=== PATIENT | female | born 2000 | race African-American/Black ===

== ENCOUNTER 2019-09-09 10:52 | Emergency (ER) | payer OTHER ==
[~2019-09-09] VITALS: Ht 160 cm; Wt 48.1 kg
[2019-09-09] MEDS ORDERED: IBUPROFEN 600600 M1 PO (14:25)
[2019-09-09 15:02] VITALS: BP 102/63
== END 2019-09-09 15:02 | disposition home or self-care (01) ==
LOC: ER 10:52
DX: N60.01 Solitary cyst of right breast (principal)

== ENCOUNTER 2020-01-30 11:21 | Emergency (ER) | payer OTHER ==
[~2020-01-30] VITALS: Ht 160 cm; Wt 49.9 kg
[~2020-01-30 11:21] MED LIST: IBUPROFEN 600600 M1 PO
[2020-01-30] MEDS ORDERED: BUTALB-APAP-CA1 EACH PO (13:13)
[2020-01-30 13:20] VITALS: BP 110/56
== END 2020-01-30 13:20 | disposition home or self-care (01) ==
LOC: ER 11:21
DX: G43.909 Migraine, unspecified, not intractable, without status migrainosus (principal)

== ENCOUNTER 2020-02-27 03:39 | Emergency (ER) | payer OTHER ==
[~2020-02-27] VITALS: Ht 160 cm; Wt 49.9 kg
[~2020-02-27 03:39] MED LIST changes: +BUTALB-APAP-CA1 EACH PO
[2020-02-27 04:55] VITALS: BP 97/57
== END 2020-02-27 05:03 | disposition home or self-care (01) ==
LOC: ER 03:39
DX: R51.9 Headache, unspecified (principal)

== ENCOUNTER 2021-01-10 23:42 | Emergency (ER) | payer OTHER ==
[~2021-01-10] VITALS: Ht 160 cm; Wt 51.7 kg
[2021-01-11 01:59] VITALS: BP 92/57
[2021-01-14] MEDS ORDERED: AMOXICILLIN 50500 M1 PO (15:36)
== END 2021-01-11 01:59 | disposition home or self-care (01) ==
LOC: ER 23:42
PROVIDERS: Student in an Organized Health Care Education/Training Program
DX: U07.1 COVID-19 (principal); J02.9 Acute pharyngitis, unspecified

== ENCOUNTER 2021-01-15 20:13 | Emergency (ER) | payer OTHER ==
[~2021-01-15] VITALS: Ht 165.1 cm; Wt 72.6 kg
--- NOTE | ~2021-01-15 | EMS ---
[address] [address] EMS Patient Care Report Name: MARKELL YUSUF Room #: DEP REGGIE Palmer#: [id number] Admission: 01/15/21 Attend Phys: Discharge: 01/15/21 Date of : [birth year] Report #: [id number] THIS REPORT FOR: //name// Report Transmitted: 01/16/2021 09:36 EMS Care Summary [place], [place]/[facility] Incident [id number] @ 01/15/2021 19:38 Incident Location [address] [place] [address] Patient MARKELL YUSUF Female, 20 Years 2000 Patient Address [address] [place], [place] [id number] Patient History None Reported, Patient Allergies No known allergies, Patient Medications None Reported, Chief Complaint Nausea & Vomiting Disposition Transported No Lights/[place] Dispatch Reason Sick Person Transported To [facility] Narrative Dispatched to the scene of a 20 year old sick female. Upon arrival, met [facility] on scene and they stated patient had been vomiting for two days. Patient was [address] [address] EMS Patient Care Report Name: MARKELL YUSUF Room #: DEP REGGIE Palmer#: [id number] Admission: 01/15/21 Attend Phys: Discharge: 01/15/21 Date of : [birth year] Report #: [id number] diagnosed with COVID last and has not been feeling well. Patient states she cannot keep any food or liquid down. Patient denied any hematemesis and stated everything she has vomited up has been bile. Patient was assisted into the ambulance and secured to the cot. An ALS assessment was performed and vitals were monitored. A 20 gauge IV was established in the left AC and patient was given 4 mg of IV zofran. Patient rested comfortably while en route to [place]. Upon hospital arrival, patient was taken in on the cot, moved herself to the hospital bed, bed rails were raised, and patient care was transferred to the receiving nurse. Initial Vitals @19:53P: 76,R: 20,BP: 118/72,Pain: 0/10,GCS: 15,SpO2: 99,Revised Trauma: 12, @20:04P: 76,R: 20,BP: 111/73,Pain: 0/10,GCS: 15,Glucose: 84,SpO2: 99,Revised Trauma: 12, Assessments @19:52MENTAL:Place Oriented,Event Oriented,Person Oriented,Time Oriented,SKIN:HEENT:Head/Face: No Abnormalities,Neck/Airway: No Abnormalities,LUNG SOUNDS:General: Nausea,General: Vomiting,ABDOMEN:General: Nausea,General: Vomiting,PELVIS//GI:No Abnormalities,EXTREMITIES:Capillary Refill: Right Upper: < 2 Sec,Left Arm: No Abnormalities,Right Arm: No Abnormalities,Left Leg: No Abnormalities,Right Leg: No Abnormalities,PULSE:Radial: 2+ Normal,NEURO:No Abnormalities,@20:03MENTAL:No Abnormalities,SKIN:No Abnormalities,HEENT:Head/Face: No Abnormalities,Eyes: No Abnormalities,Neck/Airway: No Abnormalities,LUNG SOUNDS:General: Nausea,Left Upper: No Abnormalities,Right Upper: No Abnormalities,Left Lower: No Abnormalities,Right Lower: No Abnormalities,ABDOMEN:General: Nausea,Left Upper: No Abnormalities,Right Upper: No Abnormalities,Left Lower: No Abnormalities,Right Lower: No Abnormalities,PELVIS//GI:No Abnormalities,EXTREMITIES:Left Arm: No Abnormalities,Right Arm: No Abnormalities,Left Leg: No Abnormalities,Right Leg: No Abnormalities,PULSE:NEURO:No Abnormalities, Impression COVID-19 - Confirmed by testing Procedures @19:52ALS AssessmentResponse: UnchangedSucceeded@20:09Saline Lock 5cc (20 ga) Site: Antecubital-LeftResponse: UnchangedSucceeded@20:10Zofran - 4 Milligrams (mg) - Intravenous (IV)Response: Improved Timeline 19:36,Call Received 19:36,Dispatch Notified 19:38,Dispatched 19:39,En Route [address] [address] EMS Patient Care Report Name: MARKELL YUSUF Room #: DEP REGGIE Palmer#: [id number] Admission: 01/15/21 Attend Phys: Discharge: 01/15/21 Date of : [birth year] Report #: [id number] 19:51,On Scene 19:52,At Patient 19:52,ALS Assessment,Response: UnchangedSucceeded, 19:53,BP: 118/72 M,PULSE: 76,RR: 20 R,SPO2: 99 Ox,ETCO2: ,BG: ,PAIN: 0,GCS: 15, 20:03,Depart Scene 20:04,BP: 111/73 M,PULSE: 76,RR: 20 R,SPO2: 99 Ox,ETCO2: ,B,PAIN: 0,GCS: 15, 20:09,Saline Lock 5cc 20 ga Site: Antecubital-Left,Response: UnchangedSucceeded, 20:10,At Destination 20:10,Zofran - 4 Milligrams (mg) - Intravenous (IV),Response: Improved 20:40,Call Closed Disclaimer [email or web address] Copyright 2020 [employer] This EMS Care Summary contains data elements from the applicable legal record (which may be displayed differently). It is designed to provide pertinent information for the following purposes: continuity of care, clinical quality, and state data reporting. The complete legal record is available to ED staff and administrators of the receiving hospital in [employer] Patient Tracker. All data is provided "as is."
[~2021-01-15 20:13] MED LIST changes: +AMOXICILLIN 50500 M1 PO
[2021-01-15 20:42] LABS: CALCIUM 8.5 mg/dL (8.5-10.1); CREATININE 0.8 mg/dL (0.6-1.0); POTASSIUM 3.1 mmol/L (3.5-5.1)
[2021-01-15] MEDS ORDERED: ONDANSETRON HCL4 M2 PO (21:02)
[2021-01-15 21:39] VITALS: BP 107/62
== END 2021-01-15 22:30 | disposition home or self-care (01) ==
LOC: ER 20:13
PROVIDERS: Emergency Medicine
DX: R11.10 Vomiting, unspecified (principal); Z79.899 Other long term (current) drug therapy